=== PATIENT | male | born 1985 | race Two or more races ===

== ENCOUNTER 2022-04-01 00:13 | Emergency (ER) | payer OTHER, SELFPAY ==
[2022-04-01 01:36] VITALS: BP 123/87; PULSE 70; RESP 18; TEMP 36.9; O2SAT 100; BMI 37.8
--- NOTE | 2022-04-01 01:51 | ED.SKABFB ---
HPI - Skin/Abscess/Foreign Bdy General Chief complaint: Skin/Abscess/Foreign Body Stated complaint: ?Insect bite Time Seen by Provider: 04/01/22 01:51 Source: patient Mode of arrival: ambulatory History of Present Illness HPI narrative: 36-year-old male without history of diabetes presents with suspected insect bite few days ago when he returns from and then states that it formed a pimple which he picked with his fingernail and then has had increasing redness and swelling since that time. He denies any fevers or chills at this time. Related Data Previous Rx's Medication Instructions Recorded doxycycline hyclate 100 mg tablet 100 mg PO BID 5 days #10 tabs 04/01/22 Allergies Allergy/AdvReac Type Severity Reaction Status Date / Time No Known Allergies Allergy Unverified 06/10/20 19:36 [No Known Allergies*] Review of Systems Review of Systems: Pertinent positives and negatives as stated in HPI 10 point review of systems is otherwise negative. PMFSH Past Medical History Source: nursing notes reviewed Social History Social History Advance Directives: No Physical Exam Vital Signs: Vital Signs: Last Vital Signs Temp 98.5 F 04/01/22 01:36 Pulse 70 04/01/22 01:36 Resp 18 04/01/22 01:36 BP 123/87 04/01/22 01:36 Pulse Ox 100 04/01/22 01:36 O2 Del Method 04/01/22 01:36 BMI result Body Mass Index 37.8 VITAL SIGNS: Reviewed. GENERAL: Well developed, well nourished, in no acute distress. HEAD: Normocephalic/atraumatic EYES: PERRLA, EOMI EARS: Ext canals without abnormality OROPHARYNX: no oral lesions noted, posterior pharynx clear LUNGS: Normal breath sounds. No adventitious sounds or accessory muscle use. SpO2<100> CARDIOVASCULAR: Regular rate and rhythm without noted murmurs ABDOMEN: Soft, non-tender, non-distended with bowel sounds. MUSCULOSKELETAL: No tenderness, deformities, or effusions noted on gross inspection. EXTREMITIES: No cyanosis, clubbing or edema; LEFT UPPER EXTREMITY: There is surrounding erythema with induration, no appreciable fluctuance at the medial aspect of the left upper extremity just superior to the elbow. SKIN: Inspection of the skin reveals no rashes NEUROLOGIC: Alert and oriented x 4. Strength and sensation to light touch were grossly intact x 4. Course Course Course Narrative: 36-year-old male with history and clinical presentation consistent with likely insect bite and overlying infection after scratching at the pustule with his fingernail. Will be provided with combination analgesics as well as initial antibiotics and discharged home in stable condition with instructions to return if he has worsening symptoms within 48 hours. Discharge Plan Discharge Clinical Impression: Insect bite, Cellulitis Patient Disposition: Home, Self-Care Instructions: Cellulitis (ED), Insect Bite or Sting (ED), Warm Compress or Soak (ED) Additional Instructions: 1. Recommend that you continue with [id number] Tylenol/ibuprofen as needed for pain control. 2. Complete the entire course of antibiotics as prescribed. 3. Hot moist compresses, 3 to 4 times a day. 4. Follow-up with your primary care provider on Sunday morning. Do not hesitate to return to the emergency room for worsening symptoms. Prescriptions: New doxycycline hyclate 100 mg tablet 100 mg PO BID 5 Days Qty: 10 0RF
[2022-04-01 01:55] VITALS: RESP 18
[2022-04-01] MEDS: Acetaminophen 325 MG TABLET 975 MG PO (02:09)
[2022-04-01] MEDS: Ketorolac Tromethamine 15 MG/ML VIAL IM (02:09)
== END 2022-04-01 02:16 | disposition home or self-care (01) ==
PROVIDERS: Emergency Provider Student in an Organized Health Care Education/Training Program
DX: L03.019 Cellulitis of unspecified finger (principal); M79.89 Other specified soft tissue disorders
CPT/HCPCS: 96372; 99284; J1885

== ENCOUNTER 2022-04-28 22:46 | Emergency (ER) | payer OTHER, SELFPAY ==
[2022-04-28 22:49] VITALS: BP 135/83; PULSE 87; RESP 18; TEMP 36.6; O2SAT 97; BMI 37.6
[2022-04-29] VITALS: BP 130/74; PULSE 71; RESP 16; TEMP 36.7; O2SAT 98
--- NOTE | 2022-04-29 00:10 | ED.GENADULT ---
HPI - General Adult General Chief complaint: General Medical Stated complaint: Nasal discomfort Time Seen by Provider: 04/29/22 00:10 Source: patient Mode of arrival: ambulatory Limitations: no limitations History of Present Illness HPI narrative: 36-year-old male no known medical history presenting to the emergency department with a bump in his left nares that is intermittently draining pus. Reports this has been going on for 3 days. Denies any chest pain, shortness of breath, difficulties breathing, fevers, chills. Tells me this has never happened to him before Related Data Previous Rx's Medication Instructions Recorded doxycycline hyclate 100 mg tablet 100 mg PO BID 5 days #10 tabs 04/01/22 Allergies Allergy/AdvReac Type Severity Reaction Status Date / Time No Known Allergies Allergy Verified 04/28/22 22:49 [No Known Allergies*] Review of Systems Review of Systems: Constitutional : No Weight loss, No Fever, No Chills, No Fatigue, No Malaise ENT/Mouth : No sore throat, No Rhinorrhea, + bump in nose Eyes: No Eye Pain, No Swelling, No Redness Cardiovascular : No Chest Pain, No SOB, No Dyspnea on Exertion, No Orthopnea, No Edema, No Palpitations Respiratory : No Cough, No Sputum, No Wheezing Gastrointestinal : No Nausea, No Vomiting, No Diarrhea, No Constipation, No abdominal Pain, No Hematochezia, No Melena Genitourinary : No Dysuria, No Urinary Frequency, No Hematuria, Musculoskeletal : No joint pain, No Myalgias, No Joint Swelling Skin : No Skin Lesions, No rash Neuro : No Weakness, No Numbness, No Dizziness, No Headache All other systems reviewed and are negative Yes all other systems are reviewed and are negative [facility] Past Medical History Attestation statement: The following information was validated with the patient. Source: old records reviewed and nursing notes reviewed Social History Social History Advance Directives: No Physical Exam ED Vital Signs: Vital Signs - 24 hr 04/28/22 22:49 Temperature 97.9 F Pulse Rate 87 Respiratory Rate 18 Blood Pressure 135/83 Pulse Oximetry 97 Oxygen Delivery Method Room Air BMI result Body Mass Index 37.6 vss Appearance: Alert.? Oriented X3.? No acute distress.? Head: Normocephalic, atraumatic, no step-offs or deformities Eyes: Pupils equal, round and reactive to light.? ENT: Pharynx normal.? Patient has an ingrown hair in the left nares, with some overlying edema. No erythema or calor to the area. Painful to palpation. No nasal septal hematoma. CVS: Normal heart rate and rhythm.? Pulses normal.? Respiratory: No respiratory distress.? Breath sounds normal.? Abdomen: Soft and nontender.? Skin: Skin warm and dry.? Normal skin color.? Normal skin turgor.? Extremities:5/5 strength to bilateral upper and lower extremities Neuro: Oriented X 3.? No motor deficit.? No sensory deficit. Course Reevaluation(s) Reevaluation #1: Patient discharged home. Advised to return with new or worsening symptoms. Advised to follow-up with PCP. Comfortable discharge home Time: 00:14 Medical Decision Making MDM Narrative Medical decision making narrative: 0013 36-year-old male presents with a bump in his left nares times 3 days. Reports it is intermittently draining pus. Physical examination significant for Patient has an ingrown hair in the left nares, with some overlying edema. No erythema or calor to the area. Painful to palpation. No nasal septal hematoma. Likely ingrown hair. No signs of abscess. Plan at this time is to discharge patient home Medical Records Medical records reviewed: Yes I reviewed the patient's medical records. Lab Data Lab results reviewed: Yes I reviewed the patient's lab results. Discharge Plan Discharge Clinical Impression: Ingrown hair Patient Disposition: Home, Self-Care Additional Instructions: Take your medications as prescribed. If you were prescribed antibiotics today, it is important that you take your medication to their entirety, do not skip any doses, do not finish them early. Follow-up with your primary care provider this week. Return to the emergency department with new or worsening symptoms. Such as fevers, chills, chest pain, shortness of breath, nausea, vomiting, dizziness, headache, vision changes, lethargy In case of emergency call 911 Apply warm compresses to the area. Prescriptions: No Action doxycycline hyclate 100 mg tablet 100 mg PO BID 5 Days Qty: 10 0RF Referrals: Physician,Unknown J [Primary Care Provider] - 2 days
--- NOTE | 2022-04-29 00:29 | PC.NURSE ---
Pt had already left before I could give him his discharge paper work and instructions.
== END 2022-04-29 00:32 | disposition home or self-care (01) ==
PROVIDERS: Emergency Provider Student in an Organized Health Care Education/Training Program
DX: L73.1 Pseudofolliculitis barbae (principal)
CPT/HCPCS: 99283

== ENCOUNTER 2022-05-04 18:23 | Emergency (ER) | payer OTHER, SELFPAY ==
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
--- NOTE | ~2022-05-04 | XR_ITS ---
EXAMINATION: XR CERVICAL SPINE CLINICAL INFORMATION: Neck pain COMPARISON: None TECHNIQUE: 3 views of the cervical spine were obtained. FINDINGS: There are no prevertebral soft tissue or bony abnormalities demonstrated. No compression fractures or subluxations are identified. Alignment is maintained at the atlanto-axial articulation. The disc spaces are preserved. No endplate changes are seen. The prevertebral soft tissues are normal. XR/XR cervical spine 3V IMPRESSION: Unremarkable appearance of the cervical spine.
[2022-05-04 18:37] VITALS: BP 121/64; PULSE 92; RESP 19; TEMP 36.7; O2SAT 98; BMI 37.6
[2022-05-04 20:48] VITALS: BP 136/74; PULSE 76; RESP 18; O2SAT 98
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
[2022-05-04] MEDS: Ibuprofen 800 MG TABLET PO (23:36)
== END 2022-05-04 23:38 | disposition home or self-care (01) ==
PROVIDERS: Emergency Provider Emergency Medicine
DX: S16.1XXA Strain of muscle, fascia and tendon at neck level, initial encounter (principal); V43.52XA Car driver injured in collision with other type car in traffic accident, initial encounter; Y93.89 Activity, other specified; Y92.414 Local residential or business street as the place of occurrence of the external cause; Y99.9 Unspecified external cause status
CPT/HCPCS: 71046; 72040; 99283; 99284

== ENCOUNTER 2022-09-05 20:06 | Emergency (ER) | payer OTHER, SELFPAY ==
--- NOTE | ~2022-09-05 | XR_ITS ---
EXAMINATION: XR CHEST CLINICAL INFORMATION: Cough. Shortness of breath. Chest pain. COMPARISON: Chest x-ray 05/04/2022 TECHNIQUE: 2 views of the chest were obtained. FINDINGS: No significant abnormality is noted involving the heart, lungs, mediastinum, bony thorax or soft tissues. XR/XR chest 2V IMPRESSION: Unremarkable examination.
[2022-09-05 20:20] VITALS: BP 129/86; PULSE 100; RESP 18; TEMP 36.7; O2SAT 99; BMI 39.1
--- NOTE | 2022-09-05 20:20 | ED.URI ---
HPI - URI/Sore Throat General Chief Complaint: Upper Respiratory Symptoms Stated Complaint: chest pain, difficulty breathing, tight throat Time Seen by Provider: 09/05/22 21:13 Source: patient Mode of arrival: ambulatory Limitations: no limitations History of Present Illness HPI Narrative: 37yoM presenting to the ER with complaints of chills, fatigue, malaise, sore throat and a productive cough that started yesterday. Children at home have similar symptoms. Denies recent travel or any other sick contacts. Denies any other symptoms complaints or concerns at this time. MD elicited complaint: fever, cough, sore throat, rhinorrhea and nasal congestion Onset (ago): day(s) (Started today) Consistency: constant Severity: moderate Able to tolerate fluids by mouth: Yes Exacerbating factors: swallowing Relieving factors: nothing Context: sick contacts and other(s) with similar symptoms Associated symptoms: fever, chills, myalgias, headache, rhinorrhea, nasal congestion, sore throat and cough Treatments prior to arrival: none Related Data Previous Rx's Medication Instructions Recorded doxycycline hyclate 100 mg tablet 100 mg PO BID 5 days #10 tabs 04/01/22 cyclobenzaprine 10 mg tablet 10 mg PO TID #14 tabs 05/04/22 dexamethasone 6 mg tablet 12 mg PO ONCE Inflammation #2 tabs 09/05/22 penicillin V potassium 500 mg 500 mg PO Q12H Bacterial 09/05/22 tablet pharyngitis 10 days #20 tabs Allergies Allergy/AdvReac Type Severity Reaction Status Date / Time No Known Allergies Allergy Verified 04/28/22 22:49 [No Known Allergies*] Review of Systems Review of Systems: Constitutional : No Weight loss, + Fever, + Chills, No Night Sweats, + Fatigue, + Malaise ENT/Mouth : No Hearing loss, + Ear Pain, + Nasal Congestion, No Sinus Pain, No Hoarseness, + sore throat, + Rhinorrhea, No Swallowing Difficulty Eyes: No Eye Pain, No Swelling, No Redness, No Foreign Body, No Discharge, No Vision Changes Cardiovascular : No Chest Pain, No SOB, No Dyspnea on Exertion, No Orthopnea, No Edema, No Palpitations Respiratory : + Cough, + Sputum, No Wheezing, No Smoke Exposure, No Dyspnea Gastrointestinal : No Nausea, No Vomiting, No Diarrhea, No Constipation, No abdominal Pain, No Hematochezia, No Melena Genitourinary : no irregular bleeding, No Dysuria, No Urinary Frequency, No Hematuria, No Urinary Incontinence, No Urgency, No Flank Pain, No Urinary Flow Changes, No Hesitancy Musculoskeletal : No joint pain, + Myalgias, No Joint Swelling Skin : No Skin Lesions, No rash Neuro : No Weakness, No Numbness, No Paresthesias, No Loss of Consciousness, No Dizziness, No Headache Psych : No Anxiety/Panic, No Depression, No SI/HI/AH/VH, No Social Issues, Heme/Lymph: No Bruising, No Bleeding,No Lymphadenopathy Endocrine : No Polyuria, No Polydipsia, No Temperature Intolerance Yes all other systems are reviewed and are negative [facility] Past Medical History Attestation statement: The following information was validated with the patient. Source: old records reviewed and nursing notes reviewed Social History Social History Advance Directives: No Advance Directives Information Provided: No Physical Exam Vital Signs: Vital Signs: Last Vital Signs Temp 98.1 F 09/05/22 20:20 Pulse 100 09/05/22 20:20 Resp 18 09/05/22 20:20 BP 129/86 09/05/22 20:20 Pulse Ox 99 09/05/22 20:20 O2 Del Method 09/05/22 20:20 BMI result Body Mass Index 39.1 Vital signs reviewed. Blood pressure normal. Pulse normal. Respiration normal. Oxygen normal. Temperature normal. Appearance: Alert. Oriented X3. No acute distress. Head: Normal external exam. Normocephalic. Atraumatic. Eyes: PERRLA. EOMI. Conjunctiva and sclera normal. Eyelids normal. ENT: EAC normal. Bilateral tympanic membranes erythematous/bulging with loss of normal landmarks consistent with otitis media. Posterior pharynx erythematous and uvula is in large in edematous/erythematous. Although patient tolerating secretions well. No trismus/drooling/stridor noted. The rest of the soft and hard pallor within normal limits. Uvula midline. Moist mucous membranes. No lesions/ulcerations or masses noted on the tongue. Normal voice. No muffled voice noted. Neck: Normal inspection. Neck supple. FROM. No adenopathy. Thyroid Normal. No meningeal signs. CVS: Normal heart rate and rhythm. Heart sound normal. Pulses normal throughout. No murmurs/rales/gallops. Respiratory: No respiratory distress. Painless inspiration. Breath sounds normal. No wheezes/rales/rhonchi noted. Chest nontender. No accessory muscle usage noted or decreased air movement noted. Abdomen: Soft and nontender. Back: Full range of motion noted. Nontender. Skin: Skin warm and dry. Normal skin color. Normal skin turgor. No rashes/lesions/lacerations noted. Extremities: Extremities exhibit normal range of motion and nontender. Neuro: Oriented X 3. No motor deficit. No sensory deficit. Reflexes normal. Normal steady gait. No focal neuro deficits noted. CN's II-XII intact bilaterally? Vascular: + radial pulses. Normal cap refill. No cyanosis noted to upper extremity nails Course Course Course Narrative: 20:20pm - 37yoM presenting to the ER with complaints of chills, fatigue, malaise, sore throat and a productive cough that started yesterday. Children at home have similar symptoms. Denies recent travel or any other sick contacts. Plan: COVID/RSV/flu swab, rapid strep and chest x-ray ordered at this time. Patient is stable will be sent back to the waiting room for further evaluation treatment Emergency minor care. Reevaluation(s) Reevaluation #1: Patient positive for bacterial pharyngitis. COVID/RSV/flu pending at this time. Chest x-ray pending although when I reviewed the patient's chest x-ray appears normal. Therefore at this time will DC home with antibiotics and symptomatic treatment for bacterial pharyngitis and instructions return if any new or worsening symptoms follow up with primary care provider. Patient understands agrees with this plan. Time: 21:05 Medical Decision Making Lab Data MDM Lab Attestation statement: I reviewed the patient's lab results. Labs: Lab Results 09/05/22 Range/Units 20:24 S. pyogenes GrpA SERGIO Positive A (Negative) Discharge Plan Discharge Clinical Impression: Acute bacterial pharyngitis Patient Disposition: Home, Self-Care Instructions: Pharyngitis (ED) Additional Instructions: You have pending lab results. You can check on your patient portal if you signed up with your e-mail. Return if any new or worsening symptoms. Follow up with her primary care provider. Prescriptions: New penicillin V potassium 500 mg tablet 500 mg PO Q12H 10 Days Qty: 20 0RF dexamethasone 6 mg tablet 12 mg PO ONCE Qty: 2 0RF No Action doxycycline hyclate 100 mg tablet 100 mg PO BID 5 Days Qty: 10 0RF cyclobenzaprine 10 mg tablet 10 mg PO TID Qty: 14 0RF Referrals: ED Physician,Generic [Physician] - (your pcp in 2-3 days as needed) Stand Alone Forms: Work/School Release Interventions: ED Discharge Assessment Last Done: 09/05/22 21:12
[2022-09-05 20:40] LABS: Strep A Nucleic Acid Positive (Negative)
[2022-09-05 21:14] LABS: Influenza A PCR NEGATIVE (Negative); Influenza B PCR NEGATIVE (Negative); Resp Syncy Virus RNA Qual PCR NEGATIVE (Negative); SARS COV2 PCR INHOUSE NEGATIVE (Negative)
== END 2022-09-05 21:19 | disposition home or self-care (01) ==
PROVIDERS: Physician Assistant Medical; Emergency Provider Internal Medicine
DX: J02.8 Acute pharyngitis due to other specified organisms (principal); R07.89 Other chest pain; R06.02 Shortness of breath; M79.10 Myalgia, unspecified site; R05.9 Cough, unspecified; Z20.822 Contact with and (suspected) exposure to COVID-19; Z79.899 Other long term (current) drug therapy
CPT/HCPCS: 0241U; 71046; 87651; 99282; 99283